=== PATIENT | male | born 1955 | race Caucasian/White ===

== ENCOUNTER 2017-06-29 07:34 | Observation (INO) | payer BC ==
[2017-06-29] VITALS (39 sets, daily range): BP systolic 142–221; BP diastolic 70–108; PULSE 58–79; RESP 10–20; Ht 167.6 cm; Wt 90.0 kg
[~2017-06-29] VITALS: Ht 167.6 cm; Wt 90.0 kg
[~2017-06-29 07:34] MED LIST: SOD CHLORIDE 0.9% 1,000 ML IV SCH
[2017-06-29] MEDS ORDERED: ATOR40TA68 PO (08:10)
[2017-06-29] MEDS ORDERED: METO-336 PO (08:10)
[2017-06-29] MEDS ORDERED: ALLO100T PO (08:10)
[2017-06-29] MEDS ORDERED: CLOP75TA27 PO (08:11)
[2017-06-29] MEDS ORDERED: RANO10002 PO (08:11)
[2017-06-29] MEDS ORDERED: ASPI-664 PO (08:11)
[2017-06-29] MEDS ORDERED: UBID100C24 PO (08:12)
[2017-06-29] MEDS ORDERED: NEPH PO (08:12)
[2017-06-29] MEDS ORDERED: LANT3I SC (08:18)
[2017-06-29] MEDS ORDERED: INSU200I SQ (08:19)
[2017-06-29 08:58] LABS: BASOPHIL # 0.1 10^3/ul (0.0-0.1); BASOPHILS % 0.7 % (0.0-2.0); EOSINOPHILS # 0.4 10^3/ul (0.0-0.5); EOSINOPHILS % 4.6 % (0.0-7.0); HEMATOCRIT 37.8 % (42.0-52.0); HEMOGLOBIN 12.7 g/dl (14.0-18.0); LYMPHOCYTES # 1.3 10^3/ul (0.8-2.9); LYMPHOCYTES % 16.3 % (15.0-51.0); MEAN CORPUSCULAR HEMOGLOBIN 29.2 pg (29.0-33.0); MEAN CORPUSCULAR HGB CONC 33.6 g/dl (32.0-37.0); MEAN CORPUSCULAR VOLUME 86.9 fl (82.0-101.0); MEAN PLATELET VOLUME 10.7 fl (7.4-10.4); MONOCYTE # 0.9 10^3/ul (0.3-0.9); MONOCYTES % 10.4 % (0.0-11.0); NEUTROPHIL # 5.6 10^3/ul (1.6-7.5); NEUTROPHILS % 67.6 % (39.0-77.0); PLATELET COUNT 139 10^3/UL (140-415); POSITIVE DIFF @See below; RED BLOOD COUNT 4.35 10^6/ul (4.70-6.10); RED CELL DISTRIBUTION WIDTH 13.9 % (11.5-14.5); WHITE BLOOD COUNT 8.2 10^3/ul (4.8-10.8)
[2017-06-29 09:03] LABS: ALBUMIN 3.5 g/dl (3.3-4.9); ALBUMIN/GLOBULIN RATIO 1.09; BILIRUBIN,INDIRECT 0.4 mg/dl (0-1.1); BILIRUBIN,TOTAL 0.4 mg/dl (0.2-1.3); TOTAL PROTEIN 6.7 g/dl (6.1-8.1)
[2017-06-29 09:07] LABS: INR 0.89; PARTIAL THROMBOPLASTIN TIME 27.9 Sec (25.0-35.0); PT RATIO 0.9
[2017-06-29 09:12] LABS: CREATININE 3.65 mg/dl (0.61-1.24); POTASSIUM 5.2 mmol/L (3.5-5.1)
[2017-06-29 09:14] LABS: TROPONIN-I 0.018 ng/ml (0.00-0.12)
[2017-06-29 09:17] LABS: CK-MB 10.6 ng/ml (0.0-2.4)
[2017-06-29 09:25] LABS: CHOL/HDL RATIO 1.8 RATIO
[2017-06-29] MEDS ORDERED: METOPROLOL 100 MG TAB PO ONE (09:30)
[2017-06-29] MEDS ORDERED: ACETYLCYSTEINE 600 MG CAP PO SCH (09:30)
[2017-06-29] MEDS ORDERED: LIDOCAINE 1% (MDV) 20 ML INJ ONE ×2 (14:01→16:08)
[2017-06-29] MEDS ORDERED: MIDAZOLAM 1 MG/ML 2 ML INJ ONE ×2 (14:06→16:08)
[2017-06-29] MEDS ORDERED: FENTAnyl 50 MCG/ML VIAL ONE ×2 (14:06→16:08)
[2017-06-29] MEDS ORDERED: VERAPAMIL 4 MG, NITROGLYCERIN 4 MG, HEPARIN (10000 UNITS/ML) 20,000 UNIT, LIDOCAINE 2% ... IV ONE ×5 (14:30)
[2017-06-29] MEDS ORDERED: HEPARIN 1000 UNITS/ML 10 ML INJ ONE (16:08)
[2017-06-29] MEDS ORDERED: IOHEXOL 350MG/ML 50 ML BTL ONE (16:08)
[2017-06-29] MEDS ORDERED: IODIXANOL LOCM 100 ML BTL ONE (16:08)
[2017-06-29] MEDS ORDERED: VERAPAMIL 5 MG INJ ONE (16:19)
[2017-06-29] MEDS ORDERED: NITROGLYCERIN (IC) 100 MCG/ML INJ ONE ×2 (16:24→17:02)
[2017-06-29] MEDS ORDERED: EPTIFIBATIDE 10 ML ONE (17:12)
[2017-06-29] MEDS ORDERED: CLOPIDOGREL 300 MG TAB ONE (17:46)
[2017-06-29] MEDS ORDERED: SOD CHLORIDE 0.9% 1,000 ML IV SCH (17:49)
[2017-06-29] MEDS ORDERED: morphine 2 MG INJ IV PRN (18:00)
--- NOTE | 2017-06-29 18:10 | OPR ---
Date/Time of Note Date/Time of Note DATE: 06/29/17 TIME: 17:58 Operative Report Procedure Date: Jun 29, 2017 Preoperative Diagnosis SEVERE angina and abnormal stress test Postoperative Diagnosis same Surgeon see signature line Tool Grinder Operator Surface n/a Anesthesia Type: moderate sedation Estimated Blood Loss: minimal Transfusion none Specimen none Grafts/Implants none Complications none Procedure Description Alcoholism Worker: Little Mena MD Indication: known severe CAD, severe angina class III-IV despite optimized medical therapy including toprol, Ranexa and markedly abnormal stress test/ pt also with CAD, CABG, CHF class II and CKD, PAD. Procure performed: #1 left heart catheterization and selective right coronary angiogram. 2. Selective graft angiography #2 Right femoral angiogram 3. complicated but Successful PTCA and stenting/ ROTO Blading of distal RCA using 1.25 BUR and 2.5x38 mm and 2.75x38 mm synergy NICOLA. 4. Moderate sedation for more than 120 minutes Findings: 1. Left main/ LAD/. LCX: was not shot b.c of concerns about renal failure and pt was previously known to have severely diseased LAD with patent RAO and 100% ostial LCX occlusion. 2. RCA: is dominant. it has 90 % stenosis proximally, 90% mid RCA and heavily calcified 95% stenosis distally which previously could not be opened by PTCA. 3. SVG ---> OM / or Diag: Multiple areas of 90-95% stenosis. Procedure in detail: Written informed consent with obtained after risks benefits and alternatives discussed with the patient in detail. risks including but not limited to risk of infection vascular complications, bleeding complications, [place] stroke arrhythmia renal failure at even were discussed with the patient in detail. Patient was brought into the cardiac labor relations teacher and placed in supine position. Right and left groin area was prepped and draped in regular sterile fashion and then he was in anesthetized using 1% lidocaine. Right femoral artery was cannulated and using modified seldinger technique a 5 Wolof sheath was placed in the right femoral artery. Right femoral angiogram was performed. and then it was changed to a long 6 F sheath. Pigtail was advanced to engage the left ventricle hemodynamics as recorded by pullback aortic pressure was measured. At this time we decided to perform PCI of the RCA. A AL 0.75 guiding head was advanced to engage the RCA. BMW wire was used and advanced across the lesion and placed distal to the argery. I used a 2.5 x 12 mm noncompliant balloon which was placed across the proximal and mid lesion and predilated the vessel ( so that roto can be advanced). Then I advanced a RotaWire across into the distal posterior descending artery. Roto rebekah was then tested outside of the body. Then it was advanced once the BMW wire was removed was able to place the proximal right coronary artery. He could not go further down. Had to bear this area to get the rotoblade down all the way to the distal. Distal right coronary artery multiple times was rotablated at 160. Initially was very difficult to cross it however was able to cross into the lesion. The Rotablator was removed. In between multiple rounds of nitroglycerin were rapid and IC was given. Then a BMW wire using advanced and crossed the lesion again. A 2.5 x 15 mm noncompliant balloon was passed across the lesion multiple times inflated. Then I used a 2.5 x 38 mm Synergy drug-eluting stent which was across the distal lesion. RotaWire was removed. The stent was deployed at 14 jeff. Then I used another 2.75 x 38 mm Synergy drug-eluting stent which were placed proximal to the previous stent and overlapping with it. This a stent was deployed at 16 jeff. It was advanced and the overlapping area was postdilated up to 14 jeff. Finally I used a 3 x 12 mm noncompliant balloon was used and postdilated the stent and up to 18 jeff. Final angiographic view was obtained which showed MARKEL-3 flow no evidence of dissection and no significant residual stenosis at the site of the stent. Wire was removed. Guide was advanced and placed into the saphenous finger and which was also suspicious for having significant stenosis. Angiographic view was obtained which confirmed significant central saphenous vein graft as well. It was decided to stage this procedure since the patient has severe chronic kidney disease and did not want to use any extra contrast. Patient tolerated the procedure well with no complication. Patient was transferred to ICU in stable condition. Please note that the procedure was very complex and difficult due to complex nature of the disease as well as the fact that the patient has severe chronic kidney disease and we had to use minimal amount of contrast. Conclusions: Successful PTCA stent/ rotoblading of the right coronary artery from up to 95% heavily calcified stenosis to no significant residual stenosis using a 2.5 x 38 mm Synergy and 2.75 x 38 mm Synergy drug-eluting stents. Recommendations: Aggressive medical therapy. aspirin indefinitely dual antiplatlet therapy with Plavix ICU care overnight. Stage PCI of the saphenous vein graft once renal function stabilizes LITTLE MENA MD [facility] LITTLE MENA MD Jun 29, 2017 18:10
[2017-06-29] MEDS ORDERED: DEXTROSE 50% 50 ML SYRINGE IV PRN ×2 (18:30)
[2017-06-29] MEDS ORDERED: GLUCOSE GEL 15 GRAM TUBE PO PRN ×2 (18:30)
[2017-06-29] MEDS ORDERED: GLUCAGON 1 MG INJ IM PRN (18:30)
[2017-06-29] MEDS ORDERED: GLUCOSE GEL 15 GRAM TUBE BUCCAL PRN (18:30)
[2017-06-29] MEDS: INSULIN ASPART [NOVOLOG] 3 ML PEN SC SCH (19:02)
[2017-06-29] MEDS: ACETYLCYSTEINE 600 MG CAP PO SCH (20:46)
[2017-06-29] MEDS: RANOLAZINE (SR) 500 MG TAB PO SCH (20:47)
[2017-06-29] MEDS ORDERED: ATORVASTATIN 40 MG TAB PO SCH (21:00)
[2017-06-29] MEDS ORDERED: METOPROLOL (XL) 50 MG TAB PO SCH (21:00)
[2017-06-29] MEDS ORDERED: ATROPINE 1 MG/10 ML SYRINGE ONE (21:04)
[2017-06-29] MEDS ORDERED: hydrALAzine 20 MG INJ ONE (21:23)
[2017-06-29] MEDS ORDERED: hydrALAzine 20 MG INJ IV PRN (21:30)
[2017-06-29] MEDS: ACETAMINOPHEN 325 MG TAB PO PRN (22:46)
[2017-06-30] VITALS (12 sets, daily range): BP systolic 128–168; BP diastolic 71–89; PULSE 64–80; RESP 10–21
[2017-06-30] MEDS: INSULIN ASPART [NOVOLOG] 3 ML PEN SC SCH ×3 (01:00→08:42)
--- NOTE | 2017-06-30 01:25 | HP ---
DATE OF ADMISSION: 06/29/2017 CHIEF COMPLAINT: Chest pain. HISTORY OF PRESENT ILLNESS: This is a 61-year-old male with a past medical history of chronic kidne y disease stage IV, with a baseline creatinine around 3 mg/dL, history of coronary artery disease st atus post CABG, history of hypertension, diabetes, dyspnea, heart block, status post pacemaker place ment, who presents to [facility] to undergo elective cardiac catheterization. The patient was noted to have severe angina despite being medically optimized. He was seen by his card iologist, was brought into [facility] where he underwent cardiac catheterization. The patient had successful stenting and rotablating of distal RCA. The patient, following the proc edure, was brought to recovery where he has been clinically stable without any acute complications. No hemoptysis, hematemesis or hematochezia. PAST MEDICAL HISTORY: As stated above, history of chronic kidney disease stage IV, history of coron dulce artery disease, history of hypertension, history of diabetes, history of arrhythmia. PAST SURGICAL HISTORY: Status post CABG, status post pacemaker placement. FAMILY HISTORY: Noncontributory. SOCIAL HISTORY: Does not drink, smoke or do drugs. MEDICATIONS: The patient's medications have been reviewed and reconciled. ALLERGIES: NO KNOWN DRUG ALLERGIES. REVIEW OF SYSTEMS: A 14-point review of systems was conducted. Pertinent positives stated in the H PI, otherwise negative. PHYSICAL EXAMINATION: VITAL SIGNS: Blood pressure is 172/83, pulse is 65. HEENT: Head is normocephalic. NECK: Supple. HEART: Regular rate. LUNGS: Show diminished breath sounds at base. ABDOMEN: Soft, nontender to palpation. No rebound or guarding. EXTREMITIES: Negative for clubbing, cyanosis. No edema. DERMATOLOGIC: No rashes. MUSCULOSKELETAL: No joint effusion. NEUROLOGIC: No focal deficits. LABORATORY DATA: Shows a white count 8.2, hemoglobin 10.7, hematocrit . Sodium 139, potassium 5.2, BUN 54, creatinine 0.65. ASSESSMENT AND PLAN: This is a 61-year-old male who presents with: 1. Coronary artery disease status post percutaneous coronary intervention with stent of the RCA. P archana is to continue current medical management, continue antiplatelet therapy, statin therapy. We wi ll follow with cardiology. 2. Chronic kidney disease stage IV with a previous baseline creatinine approximately 3 mg/dL. The patient's renal function appears to be at baseline. We will monitor closely for any signs of contra st-associated nephropathy. The patient only received approximately 40 mL of iodinated contrast. We will continue gentle IV hydration if blood pressure tolerates. Monitor closely. 3. Anemia. Monitor hemoglobin and hematocrit levels. 4. Mild hyperkalemia. The patient was placed on a renal diet. We will monitor potassium levels cl osely. 5. Mineral bone disorder. Monitor calcium and phosphorus levels. 6. Diabetes. Continue Accu-Cheks, insulin sliding scale. 7. Hypertension. Continue current blood pressure regimen. Would defer RENETAT inhibitor, ARB at this time. 8. Arrhythmia, status post pacemaker. Continue to monitor. 9. History of coronary artery disease, status post CABG. Continue medical management. 10. Gastrointestinal and DVT prophylaxis. Dictated By: SANDY MCLAIN DO NR/NTS Conf#: [id number] DID#: [id number] CC: LITTLE CORRAL MD;*End*
[2017-06-30] MEDS ORDERED: ACCU-CHEK XX SCH (02:00)
[2017-06-30 06:00] LABS: BASOPHILS % 0.5 % (0.0-2.0); EOSINOPHILS # 0.3 10^3/ul (0.0-0.5); EOSINOPHILS % 4.4 % (0.0-7.0); HEMATOCRIT 34.7 % (42.0-52.0); HEMOGLOBIN 11.7 g/dl (14.0-18.0); LYMPHOCYTES % 16.3 % (15.0-51.0); MEAN CORPUSCULAR HGB CONC 33.7 g/dl (32.0-37.0); MEAN PLATELET VOLUME 11.1 fl (7.4-10.4); MONOCYTE # 0.7 10^3/ul (0.3-0.9); MONOCYTES % 11.5 % (0.0-11.0); NEUTROPHIL # 4.2 10^3/ul (1.6-7.5); PLATELET COUNT 137 10^3/UL (140-415); WHITE BLOOD COUNT 6.3 10^3/ul (4.8-10.8)
[2017-06-30 06:38] LABS: ALBUMIN 2.7 g/dl (3.3-4.9); ALBUMIN/GLOBULIN RATIO 0.84; BILIRUBIN,INDIRECT 0.4 mg/dl (0-1.1); BILIRUBIN,TOTAL 0.4 mg/dl (0.2-1.3); CALCIUM 8.7 mg/dl (8.4-10.2); CHOL/HDL RATIO 2.1 RATIO; CREATININE 3.28 mg/dl (0.61-1.24); MAGNESIUM 1.7 mg/dl (1.7-2.5); POTASSIUM 4.9 mmol/L (3.5-5.1); TOTAL PROTEIN 5.9 g/dl (6.1-8.1)
--- NOTE | 2017-06-30 08:07 | CONS ---
Date/Time of Note Date/Time of Note DATE: 06/30/17 TIME: 08:04 Consult Date/Type/Reason Admit Date/Time Jun 29, 2017 at 18:34 Initial Consult Date Subjective CARD F/U NOTE S; mild groin pain no chest pain d/w staff no palpitations no PNDR ORTHOPNREA O: General: no acute distress HEENT: NC/AT. pupils are equal. round. NECK: NO JVD. no stridor. CV: RRR. systolic murmur; no gallop or rubs. PULM: no wheezing or rhonchi. GI: SOFT, NT, ND, no rebound or guarding Extremity: trace B/L LE edema. no clubbing. neuro: awake and alert, OX3. Psych: calm and pleasant rectal: deferred vascular: R fem no bleeding hematoma or bruit. Objective Vital Signs Date Time Temp Pulse Resp B/P Pulse Ox O2 Delivery O2 Flow Rate FiO2 06/30/17 07:00 66 14 145/78 96 Room Air 06/30/17 04:00 98.5 Intake and Output 06/29/17 06/29/17 06/30/17 14:59 22:59 06:59 Intake Total 100 ml 850 ml Output Total 450 ml Balance -350 ml 850 ml Results/Medications Result Diagram: 06/30/17 0534 06/30/17 0534 Results 24 hrs Laboratory Tests Test 06/29/17 08:32 06/29/17 08:41 06/29/17 18:36 06/30/17 01:00 White Blood Count 8.2 Red Blood Count 4.35 L Hemoglobin 12.7 L Hematocrit 37.8 L Mean Corpuscular Volume 86.9 Mean Corpuscular Hemoglobin 29.2 Mean Corpuscular Hemoglobin Concent 33.6 Red Cell Distribution Width 13.9 Platelet Count 139 L Mean Platelet Volume 10.7 H Neutrophils % 67.6 Lymphocytes % 16.3 Monocytes % 10.4 Eosinophils % 4.6 Basophils % 0.7 Nucleated Red Blood Cells % 0.0 Neutrophils # 5.6 Lymphocytes # 1.3 Monocytes # 0.9 Eosinophils # 0.4 Basophils # 0.1 Nucleated Red Blood Cells # 0.0 Prothrombin Time 12.0 L Prothrombin Time Ratio 0.9 INR International Normalized Ratio 0.89 Activated Partial Thromboplast Time 27.9 Sodium Level 139 Potassium Level 5.2 H Chloride Level 108 Carbon Dioxide Level 22 Anion Gap 14 Blood Urea Nitrogen 54 H Creatinine 3.65 H Glucose Level 143 Calcium Level 9.0 Total Bilirubin 0.4 Direct Bilirubin 0.00 Indirect Bilirubin 0.4 Aspartate Amino Transf (AST/SGOT) 32 Alanine Aminotransferase (ALT/SGPT) 42 Alkaline Phosphatase 87 Creatine Kinase 465 H Creatine Kinase Index 2.3 Creatinine Kinase MB (Mass) 10.60 H Troponin I 0.018 Total Protein 6.7 Albumin 3.5 Globulin 3.20 Albumin/Globulin Ratio 1.09 Triglycerides Level 132 Cholesterol Level 72 L LDL Cholesterol, Calculated 8 HDL Cholesterol 38 Cholesterol/HDL Ratio 1.8 Bedside Glucose 150 153 101 Test 06/30/17 05:07 06/30/17 05:34 Bedside Glucose 146 White Blood Count 6.3 # Red Blood Count 3.90 L Hemoglobin 11.7 L Hematocrit 34.7 L Mean Corpuscular Volume 89.0 Mean Corpuscular Hemoglobin 30.0 Mean Corpuscular Hemoglobin Concent 33.7 Red Cell Distribution Width 14.0 Platelet Count 137 L Mean Platelet Volume 11.1 H Neutrophils % 67.0 Lymphocytes % 16.3 Monocytes % 11.5 H Eosinophils % 4.4 Basophils % 0.5 Nucleated Red Blood Cells % 0.0 Neutrophils # 4.2 Lymphocytes # 1.0 Monocytes # 0.7 Eosinophils # 0.3 Basophils # 0.0 Nucleated Red Blood Cells # 0.0 Sodium Level 140 Potassium Level 4.9 Chloride Level 113 H Carbon Dioxide Level 20 L Anion Gap 12 Blood Urea Nitrogen 50 H Creatinine 3.28 H Glucose Level 140 Hemoglobin A1c 7.5 H Calcium Level 8.7 Magnesium Level 1.7 Total Bilirubin 0.4 Direct Bilirubin 0.00 Indirect Bilirubin 0.4 Aspartate Amino Transf (AST/SGOT) 26 Alanine Aminotransferase (ALT/SGPT) 43 Alkaline Phosphatase 71 Creatine Kinase 257 #H Total Protein 5.9 L Albumin 2.7 L Globulin 3.20 Albumin/Globulin Ratio 0.84 Triglycerides Level 203 H Cholesterol Level 61 L LDL Cholesterol, Calculated HDL Cholesterol 29 L Cholesterol/HDL Ratio 2.1 Medications Current Medications Allopurinol (Zyloprim) 100 mg DAILY PO ; Start 06/30/17 at 09:00 Aspirin (Halfprin) 81 mg DAILY PO ; Start 06/30/17 at 09:00 Atorvastatin Calcium (Lipitor) 40 mg QHS PO Last administered on 06/29/17t 20: 46; Admin Dose 40 MG; Start 06/29/17 at 21:00 Clopidogrel Bisulfate (plaVIX) 75 mg DAILY PO ; Start 06/30/17 at 09:00 Metoprolol Succinate (Toprol Xl) 100 mg DAILY PO Last administered on 20:48; Admin Dose 100 MG; Start 06/30/17 at 09:00 Multivit/Ca Carb/ B Cmplx/FA/Prenat (Melody-Charles) 1 tab DAILY PO ; Start at 09:00 Ranolazine (Ranexa) 1,000 mg Q12 PO Last administered on 06/29/17 20:47; Admin Dose 1,000 MG; Start 06/29/17 at 21:00 Metoprolol Succinate (Toprol Xl) 50 mg QHS PO ; Start 06/29/17 at 21:00 Clonidine (Catapres) 0.1 mg Q4H PRN PO SBP > 170; Start 06/29/17 at 18:00 Diagnostic Test (Pha) (Accu-Chek) 1 ea 02 XX ; Start 06/30/17 at 02:00 Insulin Aspart (Novolog Insulin Pen) NOVOLOG *MODERATE* ALGORI... Q4 SC Last administered on 06/30/17 05:08; Admin Dose 2 UNIT; Start 06/29/17 at 21:00 Acetylcysteine (Nac) 600 mg BID PO Last administered on 06/29/17 20:46; Admin Dose 600 MG; Start 06/29/17 at 21:00 Morphine Sulfate (morphine) 2 mg Q2H PRN IV SEVERE PAIN ; Start 06/29/17 at 18 :00 Acetaminophen (Tylenol Tab) 650 mg Q6H PRN PO PAIN AND OR ELEVATED TEMP Last administered on 06/29/17 22:46; Admin Dose 650 MG; Start 06/29/17 at 18:00 Miscellaneous Information 1 ea NOTE XX ; Start 06/29/17 at 18:30 Glucose (Glutose) 15 gm Q15M PRN PO DECREASED GLUCOSE; Start 06/29/17 at 18:30 Glucose (Glutose) 22.5 gm Q15M PRN PO DECREASED GLUCOSE; Start 06/29/17 at 18: 30 Dextrose (D50w Syringe) 25 ml Q15M PRN IV DECREASED GLUCOSE; Start 06/29/17 at 18:30 Dextrose (D50w Syringe) 50 ml Q15M PRN IV DECREASED GLUCOSE; Start 06/29/17 at 18:30 Glucagon (Glucagen) 1 mg Q15M PRN IM DECREASED GLUCOSE; Start 06/29/17 at 18: 30 Glucose (Glutose) 15 gm Q15M PRN BUCCAL DECREASED GLUCOSE; Start 06/29/17 at 18:30 Hydralazine HCl (Apresoline) 10 mg Q4H PRN IV ELEVATED SYSTOLIC BP Last administered on 06/29/17t 21:35; Admin Dose 10 MG; Start 06/29/17 at 21:30 Assessment/Plan Chief Complaint/Hosp Course 1. unstable angina, abnormal stress test and severe CAD 2. S/P PCI / ROTO RCA 3. CKD 4. HTN 5. DM 6. Dyslipidemia 7. CHF: stable 7./ sss/ heart block s/ p PPM inc toprol xl 100 bid cont other meds dc home. repeat labs in one week and if stable renal fx will proceed with PCI SVG in 2 weeks. LITTLE CORRAL MD [facility] Problems: LITTLE CORRAL MD Jun 30, 2017 08:07
[2017-06-30] MEDS: ACETYLCYSTEINE 600 MG CAP PO SCH (08:38)
[2017-06-30] MEDS: RANOLAZINE (SR) 500 MG TAB PO SCH (08:39)
--- NOTE | 2017-06-30 08:45 | PN ---
DATE: 06/30/2017 SUBJECTIVE: The patient is stable. Overnight, no acute events noted. No hemoptysis, hematemesis, hematochezia. PHYSICAL EXAMINATION: VITAL SIGNS: Blood pressure is 145/78, respirations 14, pulse 66, temperature 98.5. HEENT: Normocephalic. NECK: Supple. HEART: Regular rate. LUNGS: Show diminished breath sounds at the base. ABDOMEN: Soft, nontender to palpation. No rebound or guarding. EXTREMITIES: Negative for clubbing, cyanosis, no edema. DERMATOLOGIC: No rashes. MUSCULOSKELETAL: No joint effusion. NEUROLOGICAL: No focal deficits. LABORATORY DATA: Sodium 140, potassium 4.9, chloride 113, BUN 50, creatinine 3.28. White count 6.3 , hemoglobin 9.7, hematocrit 34.7, platelet count 137. ASSESSMENT AND PLAN: 1. Coronary artery disease status post percutaneous coronary intervention dRCA. The patient is cur rently stable. Continue current medical management. Followup with cardiology. 2. Chronic kidney disease stage IV with a baseline creatinine around 3 mg/dL. The patient's renal function is currently at baseline. Renal function and creatinine improved in the last 24 hours. Th e patient had very minimal contrast exposure. There is no evidence of contrast-associated nephropat hy. Will continue to monitor. The patient is to followup with his outpatient automotive leasing sales representative in outpa tient setting. 3. Anemia, monitor hemoglobin and hematocrit levels. 4. Mild hyperkalemia, resolved. 5. Mineral bone disorder. Continue to monitor calcium and phosphorus levels. 6. Diabetes. Continue Accu-Cheks and insulin sliding scale. 7. Hypertension. Continue current blood pressure regimen. 8. Arrhythmia. Status post pacemaker. Continue to monitor. 9. History of coronary artery disease. Status post coronary artery bypass graft 10. Gastrointestinal and deep venous thrombosis prophylaxis. Dictated By: SANDY ALVARENGA/JHON Conf#: [id number] DID#: [id number]
[2017-06-30] MEDS ORDERED: ALLOPURINOL 100 MG TAB PO SCH (09:00)
[2017-06-30] MEDS ORDERED: MULTIVIT/CA CARB/B CMPLX/FA TAB PO SCH (09:00)
[2017-06-30] MEDS ORDERED: METOPROLOL (XL) 100 MG TAB PO SCH ×2 (09:00→09:30)
[2017-06-30] MEDS ORDERED: ASPIRIN (EC) 81 MG TAB PO SCH (09:00)
[2017-06-30] MEDS ORDERED: CLOPIDOGREL 75 MG TAB PO SCH (09:00)
[2017-06-30] MEDS: ACETAMINOPHEN 325 MG TAB PO PRN (10:02)
--- NOTE | 2017-07-01 09:36 | DS ---
DATE OF ADMISSION: 06/29/2017 DATE OF DISCHARGE: 06/30/2017 HOSPITAL COURSE: This is a 61-year-old male with a past medical history of chronic kidney disease s tage IV with a baseline creatinine around 3 mg/dL, history of CABG, hypertension, diabetes, dyslipid emia, heart block who presented to [facility] to undergo elective cardiac catheter ization. The patient had a cardiac catheterization performed by Dr. Mena in which a stent and PCI to RCA was performed. The patient had minimal contrast exposure. Following the procedure, the pat ient was clinically stable. There was no evidence or signs of contrast-associated nephropathy. The patient's renal function actually improved after receiving IV hydration. Currently at this time, t he patient is stable, in no acute distress. He will be discharged home with followup with his prima care physician and application integration engineer in 2 to 3 days' time. FINAL DIAGNOSES: 1. Coronary artery disease, status post percutaneous coronary intervention and stenting of the [facility] t coronary artery. Continue current medical management with antiplatelet therapy. 2. Chronic kidney disease stage IV, renal function is currently stable. Continue to monitor. 3. Anemia 4. Mild hyperkalemia, resolved. 5. Mineral bone disorder. 6. Diabetes. 7. Hypertension. 8. Arrhythmia. 9. Coronary artery disease status post coronary artery bypass graft. Please note at time of discharge, the patient is stable, in no acute distress. Please note I spent over 30 minutes of time discharging patient. FINAL MEDICATIONS: See reconciliation list. Dictated By: SANDY ALVARENGA/JHON Conf#: [id number] DID#: [id number]
--- NOTE | 2017-07-01 13:31 | RADRPT ---
Vent Rate: 65 bpm RR Interval: 0 msec ID Interval: 168 msec QRS Duration: 148 msec QT Interval: 454 msec QTC Interval: 472 msec P-R-T [place]: 71 - 98 - 0 degrees Normal sinus rhythm Rightward axis Left bundle branch block Abnormal ECG Electronically Signed By: Benigno Cast [id number]
== END 2017-06-30 11:00 | disposition home or self-care (01) ==
LOC: SDS 07:34 → REC 18:34 → SDS 18:34 → UNDOADMOB 20:02 → REC 20:02 → ICU 23:30
PROVIDERS: ADMIT Internal Medicine Interventional Cardiology; ATTEND Internal Medicine Interventional Cardiology
DX: I25.110 Atherosclerotic heart disease of native coronary artery with unstable angina pectoris (principal); Z95.1 Presence of aortocoronary bypass graft; I13.0 Hypertensive heart and chronic kidney disease with heart failure and stage 1 through stage 4 chronic kidney disease, or unspecified chronic kidney disease; N18.4 Chronic kidney disease, stage 4 (severe); I50.9 Heart failure, unspecified; D64.9 Anemia, unspecified; E87.5 Hyperkalemia; M89.9 Disorder of bone, unspecified; E11.9 Type 2 diabetes mellitus without complications; I10 Essential (primary) hypertension; E78.5 Hyperlipidemia, unspecified; Z95.0 Presence of cardiac pacemaker
CPT/HCPCS: 80053; 80061; 82550; 82553; 82962; 83036; 83735; 84484; 85025; 85610; 85730; 87081; 93005; 93459; C1724; C1725; C1769; C1874; C1887; C1894; G0378; J0360; J0461; J1327; J1644; J1815; J2250; J3010; J7030; Q9967

== ENCOUNTER 2017-07-20 08:30 | Observation (INO) | payer BC ==
[2017-07-20] VITALS (22 sets, daily range): BP systolic 140–189; BP diastolic 68–93; PULSE 60–74; RESP 10–23; Ht 170.2 cm; Wt 86.3 kg
[~2017-07-20] VITALS: Ht 170.2 cm; Wt 86.3 kg
[~2017-07-20 08:30] MED LIST changes: +ACETYLCYSTEINE INJ 1,200 MG in SOD CHLORIDE 0.9% 100 ML IV SCH; +ALLO100T PO; +ASPI-664 PO; +ATOR40TA68 PO; +CLOP75TA27 PO; +INSU200I SQ; +LANT3I SC; +METO-336 PO; +NEPH PO; +RANO10002 PO; +UBID100C24 PO
[2017-07-20] MEDS ORDERED: METOPROLOL (XL) 100 MG TAB PO ONE (09:30)
[2017-07-20 09:35] LABS: BASOPHILS % 0.6 % (0.0-2.0); EOSINOPHILS # 0.4 10^3/ul (0.0-0.5); HEMATOCRIT 33.4 % (42.0-52.0); HEMOGLOBIN 11.4 g/dl (14.0-18.0); LYMPHOCYTES % 14.9 % (15.0-51.0); MEAN CORPUSCULAR HEMOGLOBIN 30.4 pg (29.0-33.0); MEAN CORPUSCULAR HGB CONC 34.1 g/dl (32.0-37.0); MEAN CORPUSCULAR VOLUME 89.1 fl (82.0-101.0); MONOCYTE # 0.7 10^3/ul (0.3-0.9); MONOCYTES % 9.7 % (0.0-11.0); NEUTROPHIL # 4.9 10^3/ul (1.6-7.5); NEUTROPHILS % 69.5 % (39.0-77.0); PLATELET COUNT 144 10^3/UL (140-415); RED BLOOD COUNT 3.75 10^6/ul (4.70-6.10); RED CELL DISTRIBUTION WIDTH 14.2 % (11.5-14.5)
[2017-07-20 09:54] LABS: INR 0.94; PROTIME 12.6 Sec (12.2-14.2)
[2017-07-20 09:55] LABS: ALBUMIN 3.2 g/dl (3.3-4.9); ALBUMIN/GLOBULIN RATIO 0.96; BILIRUBIN,INDIRECT 0.3 mg/dl (0-1.1); BILIRUBIN,TOTAL 0.3 mg/dl (0.2-1.3); PARTIAL THROMBOPLASTIN TIME 27.4 Sec (25.0-35.0); TOTAL PROTEIN 6.5 g/dl (6.1-8.1)
[2017-07-20 09:56] LABS: CALCIUM 8.9 mg/dl (8.4-10.2); CREATININE 3.55 mg/dl (0.61-1.24); POTASSIUM 4.8 mmol/L (3.5-5.1)
[2017-07-20 10:08] LABS: CK-MB 10.2 ng/ml (0.0-2.4)
[2017-07-20 10:42] LABS: TROPONIN-I 0.033 ng/ml (0.00-0.12)
--- NOTE | 2017-07-20 13:54 | RADRPT ---
PROCEDURE: XR Chest. CLINICAL INDICATION: CHF. TECHNIQUE: Single portable view of the chest was obtained. COMPARISON: None . FINDINGS: Low lung volumes. The heart is enlarged. There are median sternotomy and post CABG changes. A left-s ided dual chambered AICD is present with leads overlying the right atrium and right ventricle. Left upper lobe, perihilar and lower lobe fibrosis or discoid atelectasis is present. No evidence of congestive heart failure, consolidation or pleural effusion. IMPRESSION: 1. No acute pulmonary disease. 2. Left upper lobe, hilar and lower lobe scar or discoid atelectasis. 3. Cardiomegaly with post CABG changes. 4. Cardiac pacemaker. RPTAT: HRSR Physician Chivo Date Time Electronically viewed and signed by Physician Chivo on 07/20/2017 13:54 RR/
[2017-07-20] MEDS ORDERED: BIVALIRUDIN 250MG /NS 50 ML 50 ML IVPB ONE (17:37)
[2017-07-20] MEDS ORDERED: IODIXANOL LOCM 100 ML BTL ONE (17:37)
[2017-07-20] MEDS ORDERED: FENTAnyl 50 MCG/ML VIAL ONE (17:38)
[2017-07-20] MEDS ORDERED: VERAPAMIL 5 MG INJ ONE (17:38)
[2017-07-20] MEDS ORDERED: MIDAZOLAM 1 MG/ML 2 ML INJ ONE (17:38)
[2017-07-20] MEDS ORDERED: NITROGLYCERIN (IC) 100 MCG/ML INJ ONE (17:38)
[2017-07-20] MEDS ORDERED: HYPOGLYCEMIA PROTOCOL when Glucose is <70 mg/dL or symptomatic <90 mg/dL. XX ONE ×2 (18:30→19:00)
[2017-07-20] MEDS ORDERED: Discontinue current oral sulfonylureas (glyburide, glipizide, and/or glimepiride) prior to XX ONE ×2 (18:30→19:00)
[2017-07-20] MEDS ORDERED: CLOPIDOGREL 300 MG TAB ONE (18:39)
[2017-07-20] MEDS ORDERED: SOD CHLORIDE 0.9% 1,000 ML IV SCH (18:41)
--- NOTE | 2017-07-20 18:41 | HP ---
DATE OF ADMISSION: 07/20/2017 CHIEF COMPLAINT: Coronary artery disease. HISTORY OF PRESENT ILLNESS: This is a 61-year-old male with a past medical history of chronic kidne y disease stage IV with a baseline creatinine around 3.5 mg/dL, history of coronary artery disease, status post CABG, history of hypertension, diabetes, dyspnea, heart block, status post pacemaker obinna cement, who presents to [facility] to undergo elective cardiac catheterization. T he patient was previously admitted to [facility] approximately 2 weeks ago, where he underwent cardiac catheterization with PCI to right coronary artery. The patient is now back for further revascularization of his coronary arteries. The patient states that his renal function has been at baseline. Additionally, the patient denies any uremic symptoms. No nausea, vomiting, no s hortness of breath. PAST MEDICAL HISTORY: As stated above, history of CKD stage IV, history of coronary artery disease, hypertension, diabetes, arrhythmia. PAST SURGICAL HISTORY: Status post CABG, status post pacemaker placement. FAMILY HISTORY: Noncontributory. SOCIAL HISTORY: Does not drink, smoke or do drugs. MEDICATIONS: Reviewed and reconciled. ALLERGIES: NO KNOWN DRUG ALLERGIES. REVIEW OF SYSTEMS: A 14-point review of systems was conducted. Pertinent positives in HPI, otherwi se negative. PHYSICAL EXAMINATION: VITAL SIGNS: Blood pressure is 150/82, pulse 62. HEENT: Head is normocephalic. NECK: Supple. HEART: Regular rate. LUNGS: Show diminished breath sounds at the base. ABDOMEN: Soft, nontender to palpation. No rebound or guarding. EXTREMITIES: Negative for clubbing, cyanosis. Trace edema. DERMATOLOGIC: No rashes. MUSCULOSKELETAL: No joint effusions. NEUROLOGIC: No change in exam. No focal deficit. LABORATORY DATA: Shows white count 7.0, hemoglobin ____.4, platelet count is 144. Sodium 142, pota ssium 4.8, BUN 12, creatinine 3.55. ASSESSMENT AND PLAN: This is a 61-year-old male who presents with: 1. Coronary artery disease. The patient is pending cardiac catheterization. Will plan to continue current medical management. Continue antiplatelet therapy, statin therapy. Follow up with cardiolo gy. 2. Chronic kidney disease stage IV with a baseline creatinine 3.5 mg/dL. Renal function appears to be at baseline. Will monitor very closely for any signs of contrast-induced nephropathy. Would oth erwise continue gentle IV hydration. Continue current treatment plan. 3. Anemia. Monitor hemoglobin and hematocrit levels. 4. Mineral bone disease. Monitor calcium and phosphorus levels. 5. Diabetes. Continue current insulin regimen. 6. Hypertension. Continue current blood pressure regimen. Withhold angiotensin-converting enzyme i nhibitor/angiotensin receptor leta at this time in the setting of contrast exposure. 7. Arrhythmia, status post pacemaker. Continue medical management. 8. History of coronary artery disease, status post coronary artery bypass graft. 9. Gastrointestinal and deep venous thrombosis prophylaxis. Dictated By: SANDY ALVARENGA/NTS Conf#: [id number] DID#: [id number]
--- NOTE | 2017-07-20 18:57 | OPR ---
Date/Time of Note Date/Time of Note DATE: 07/20/17 TIME: 18:49 Operative Report Procedure Date: Jul 20, 2017 Preoperative Diagnosis class IV angina. abnormal stress test despite optimized medical therapy. severe CAD Postoperative Diagnosis SAME Surgeon see signature line Machine Pie Maker N/A Anesthesia Type: moderate sedation Estimated Blood Loss: minimal Transfusion none Specimen NONE Grafts/Implants none Complications none Pt Condition Post Procedure: stable Procedure Description Professional Caster: Little Mena MD Indication: recurrent angina. abnormal stress test. CAD. Procure performed: #1 selective sherrie angiogram. #2 Right femoral angiogram 3. Successful PTCA and stenting of SVG to diag/ RI using a 3.5X38 mm synergy and 4x20 synergy NICOLA 4. Moderate sedation for more than 60 minutes Findings: 1. SVG ---> RI ( or diagonal) multiple area of up to 95% to 0% post PCI Procedure in detail: Written informed consent with obtained after risks benefits and alternatives discussed with the patient in detail. risks including but not limited to risk of infection vascular complications, bleeding complications, NV stroke arrhythmia renal failure at even were discussed with the patient in detail. Patient was brought into the cardiac chemical laboratory scientist and placed in supine position. Right and left groin area was prepped and draped in regular sterile fashion and then he was in anesthetized using 1% lidocaine. Right femoral artery was cannulated and using modified seldinger technique a 4 Swazi sheath was placed in the right femoral artery. Right femoral angiogram was performed. preclose was placed and changed to a long 6 F sheath. At this time we decided to perform PCI of the SVG based on the study done previously. A AL 0.75 guiding head was advanced to engage the SVG artery. runthroug wire was used and advanced across the lesion and placed distal to the argery. I used a 2.5x20 mm balloon which was placed across the lesion and predilated the vessel. Then I used a 3.5x38 mm synergy stent which was placed across the lesion and deployed at 16 jeff. Then I used the 4.0 x 20 mm Synergy drug-eluting stent which was placed proximal to the previous stent overlapping with it and deployed it at 16 jeff. The stent balloon was advanced and overlapping area was postdilated at 14 jeff. Of note multiple rounds of nitroglycerin and verapamil intracoronary was given. Final angiographic view was obtained which showed MARKEL-3 flow no evidence of dissection and no significant residual stenosis at the site of the stent. perclose could not be successfully be deployed and a 6 F sheath was placed in. Patient tolerated the procedure well with no complication. Patient was transferred to ICU in stable condition. Conclusions: Successful PTCA stenting of the saphenous vein graft artery from 95 % stenosis to no significant residual stenosis using a 3.5 x 38 and a 4.0 x 20 mm Synergy drug-eluting stents. Recommendations: Aggressive medical therapy. aspirin indefinitely dual antiplatlet therapy with aspirin and Plavix ICU care overnight. LITTLE MENA MD [facility] LITTLE MENA MD Jul 20, 2017 18:57
[2017-07-20] MEDS ORDERED: OXYCODONE/ACETAMINOPHEN (5/325) TAB PO PRN ×2 (19:00)
[2017-07-20] MEDS ORDERED: ACETAMINOPHEN 325 MG TAB PO PRN (19:00)
[2017-07-20] MEDS ORDERED: morphine 2 MG INJ IV PRN (19:00)
[2017-07-20] MEDS ORDERED: ONDANSETRON 4 MG INJ IV PRN (19:00)
[2017-07-20] MEDS ORDERED: GLUCOSE GEL 15 GRAM TUBE PO PRN ×2 (19:30)
[2017-07-20] MEDS ORDERED: GLUCOSE GEL 15 GRAM TUBE BUCCAL PRN (19:30)
[2017-07-20] MEDS ORDERED: GLUCAGON 1 MG INJ IM PRN (19:30)
[2017-07-20] MEDS ORDERED: DEXTROSE 50% 50 ML SYRINGE IV PRN ×2 (19:30)
[2017-07-20] MEDS ORDERED: INSULIN ASPART [NOVOLOG] 3 ML PEN SC SCH (21:00)
[2017-07-20] MEDS ORDERED: FAMOTIDINE 20 MG TAB PO SCH (21:00)
[2017-07-20] MEDS ORDERED: RANOLAZINE (SR) 500 MG TAB PO SCH (21:00)
[2017-07-20] MEDS ORDERED: ATORVASTATIN 40 MG TAB PO SCH ×2 (21:00)
[2017-07-20] MEDS: ACETYLCYSTEINE 600 MG CAP PO SCH (22:27)
[2017-07-20] MEDS: DOCUSATE SODIUM 100 MG CAP PO SCH (22:27)
[2017-07-20] MEDS: METOPROLOL (XL) 100 MG TAB PO SCH (23:18)
[2017-07-20] MEDS: RANOLAZINE (SR) 500 MG TAB PO SCH (23:18)
[2017-07-20] MEDS: INSULIN ASPART [NOVOLOG] 3 ML PEN SC SCH (23:23)
[2017-07-21] VITALS (14 sets, daily range): BP systolic 138–174; BP diastolic 65–91; PULSE 60–69; RESP 12–17
[2017-07-21] MEDS ORDERED: ACCU-CHEK XX SCH ×2 (02:00)
[2017-07-21 05:52] LABS: BASOPHIL # 0.1 10^3/ul (0.0-0.1); BASOPHILS % 0.8 % (0.0-2.0); EOSINOPHILS # 0.3 10^3/ul (0.0-0.5); EOSINOPHILS % 5.1 % (0.0-7.0); HEMATOCRIT 32.2 % (42.0-52.0); HEMOGLOBIN 10.5 g/dl (14.0-18.0); LYMPHOCYTES # 1.1 10^3/ul (0.8-2.9); LYMPHOCYTES % 16.4 % (15.0-51.0); MEAN CORPUSCULAR HGB CONC 32.6 g/dl (32.0-37.0); MEAN PLATELET VOLUME 11.6 fl (7.4-10.4); MONOCYTE # 0.8 10^3/ul (0.3-0.9); MONOCYTES % 11.6 % (0.0-11.0); NEUTROPHIL # 4.4 10^3/ul (1.6-7.5); NEUTROPHILS % 65.6 % (39.0-77.0); PLATELET COUNT 116 10^3/UL (140-415); RED CELL DISTRIBUTION WIDTH 14.6 % (11.5-14.5); WHITE BLOOD COUNT 6.6 10^3/ul (4.8-10.8)
[2017-07-21 06:15] LABS: MAGNESIUM 1.8 mg/dl (1.7-2.5); PHOSPHORUS 4.8 mg/dl (2.5-4.9)
[2017-07-21 06:37] LABS: ALBUMIN 2.8 g/dl (3.3-4.9); ALBUMIN/GLOBULIN RATIO 1.03; BILIRUBIN,INDIRECT 0.2 mg/dl (0-1.1); BILIRUBIN,TOTAL 0.2 mg/dl (0.2-1.3); CALCIUM 8.4 mg/dl (8.4-10.2); CREATININE 3.32 mg/dl (0.61-1.24); TOTAL PROTEIN 5.5 g/dl (6.1-8.1)
[2017-07-21 06:46] LABS: POTASSIUM 6.1 mmol/L (3.5-5.1)
--- NOTE | 2017-07-21 07:14 | CONS ---
Date/Time of Note Date/Time of Note DATE: 07/21/17 TIME: 07:11 Consult Date/Type/Reason Admit Date/Time Jul 20, 2017 at 18:45 Initial Consult Date Type of Consultation: card Subjective card f/u note S: NO CP OR PRESSURE No palpitations no PND orthopnea no groin pain but he has not walked yet O: General: no acute distress HEENT: NC/AT. pupils are equal. round. NECK: NO JVD. no stridor. CV: RRR. systolic murmur; no gallop or rubs. PULM: no wheezing or rhonchi. GI: OBESE. SOFT, NT, ND, no rebound or guarding Extremity: trace B/L LE edema. no clubbing. neuro: awake and alert, OX3. Psych: calm and pleasant Vascular: R fem no bleeding or hematoma Objective Vital Signs Date Time Temp Pulse Resp B/P Pulse Ox O2 Delivery O2 Flow Rate FiO2 07/21/17 06:00 62 13 144/65 97 Room Air 07/21/17 04:00 98.1 Intake and Output 07/20/17 07/20/17 07/21/17 14:59 22:59 06:59 Intake Total 345 ml 820 ml Output Total 250 ml Balance 345 ml 570 ml Results/Medications Result Diagram: 07/21/17 0456 07/21/17 0456 Results 24 hrs Laboratory Tests Test 07/20/17 09:26 07/20/17 09:48 07/20/17 17:12 07/20/17 19:19 White Blood Count 7.0 Red Blood Count 3.75 L Hemoglobin 11.4 L Hematocrit 33.4 L Mean Corpuscular Volume 89.1 Mean Corpuscular Hemoglobin 30.4 Mean Corpuscular Hemoglobin Concent 34.1 Red Cell Distribution Width 14.2 Platelet Count 144 Mean Platelet Volume 11.0 H Neutrophils % 69.5 Lymphocytes % 14.9 L Monocytes % 9.7 Eosinophils % 5.0 Basophils % 0.6 Nucleated Red Blood Cells % 0.0 Neutrophils # 4.9 Lymphocytes # 1.0 Monocytes # 0.7 Eosinophils # 0.4 Basophils # 0.0 Nucleated Red Blood Cells # 0.0 Prothrombin Time 12.6 Prothrombin Time Ratio 1.0 INR International Normalized Ratio 0.94 Activated Partial Thromboplast Time 27.4 Sodium Level 142 Potassium Level 4.8 Chloride Level 110 Carbon Dioxide Level 21 Anion Gap 16 Blood Urea Nitrogen 51 H Creatinine 3.55 H Glucose Level 175 Calcium Level 8.9 Total Bilirubin 0.3 Direct Bilirubin 0.00 Indirect Bilirubin 0.3 Aspartate Amino Transf (AST/SGOT) 24 Alanine Aminotransferase (ALT/SGPT) 37 Alkaline Phosphatase 85 Creatine Kinase 278 H Creatine Kinase Index 3.7 Creatinine Kinase MB (Mass) 10.20 H Troponin I 0.033 B-Type Natriuretic Peptide 1230 H Total Protein 6.5 Albumin 3.2 L Globulin 3.30 H Albumin/Globulin Ratio 0.96 Bedside Glucose 180 135 141 Test 07/20/17 22:22 07/21/17 04:56 Bedside Glucose 191 White Blood Count 6.6 Red Blood Count 3.50 L Hemoglobin 10.5 L Hematocrit 32.2 L Mean Corpuscular Volume 92.0 Mean Corpuscular Hemoglobin 30.0 Mean Corpuscular Hemoglobin Concent 32.6 Red Cell Distribution Width 14.6 H Platelet Count 116 L Mean Platelet Volume 11.6 H Neutrophils % 65.6 Lymphocytes % 16.4 Monocytes % 11.6 H Eosinophils % 5.1 Basophils % 0.8 Nucleated Red Blood Cells % 0.0 Neutrophils # 4.4 Lymphocytes # 1.1 Monocytes # 0.8 Eosinophils # 0.3 Basophils # 0.1 Nucleated Red Blood Cells # 0.0 Sodium Level 141 Potassium Level 6.1 *H Chloride Level 112 H Carbon Dioxide Level 20 L Anion Gap 15 Blood Urea Nitrogen 46 H Creatinine 3.32 H Glucose Level 219 Calcium Level 8.4 Phosphorus Level 4.8 Magnesium Level 1.8 Total Bilirubin 0.2 Direct Bilirubin 0.00 Indirect Bilirubin 0.2 Aspartate Amino Transf (AST/SGOT) 23 Alanine Aminotransferase (ALT/SGPT) 35 Alkaline Phosphatase 71 Creatine Kinase 200 B-Type Natriuretic Peptide 1480 H Total Protein 5.5 #L Albumin 2.8 L Globulin 2.70 Albumin/Globulin Ratio 1.03 Medications Current Medications Allopurinol (Zyloprim) 100 mg DAILY PO ; Start 07/21/17 at 09:00 Multivit/Ca Carb/ B Cmplx/FA/Prenat (Melody-Charles) 1 tab DAILY PO ; Start at 09:00 Diagnostic Test (Pha) (Accu-Chek) 1 ea 02 XX Last administered on 07/21/17t 02 :06; Admin Dose 1 EA; Start 07/21/17 at 02:00 Acetaminophen (Tylenol Tab) 650 mg Q4H PRN PO NON-CARDIAC PAIN LEVEL 1-3; Start 07/20/17 at 19:00 Oxycodone/ Acetaminophen (Percocet (5/ 325)) 1 tab Q4H PRN PO REPORTED NON- CARDIAC PAIN 4-7; Start 07/20/17 at 19:00 Oxycodone/ Acetaminophen (Percocet (5/ 325)) 2 tab Q4H PRN PO REPORTED NON- CARDIAC PAIN 4-7; Start 07/20/17 at 19:00 Morphine Sulfate (morphine) 1 mg Q1H PRN IV PAIN NOT RELIEVED BY OTHERS; Start 07/20/17 at 19:00 Ondansetron HCl (Zofran Inj) 4 mg Q4H PRN IV NAUSEA AND/OR VOMITING; Start at 19:00 Docusate Sodium (Colace) 100 mg BID PO Last administered on 07/20/17 22:27; Admin Dose 100 MG; Start 07/20/17 at 21:00 Famotidine 10 mg 10 mg Q24H PO Last administered on 07/20/17 22:28; Admin Dose 10 MG; Start 07/20/17 at 21:00 Sodium Chloride (NS) 1,000 ml @ 75 mls/hr [id number] IV Last administered on 19:30; Admin Dose 75 MLS/HR; Start 07/20/17 at 18:41; Stop 07/21/17 at 08:00 Metoprolol Succinate (Toprol Xl) 100 mg BID PO Last administered on 07/20/17 23:18; Admin Dose 100 MG; Start 07/20/17 at 21:00 Atorvastatin Calcium (Lipitor) 40 mg HS PO Last administered on 07/20/17 22: 28; Admin Dose 40 MG; Start 07/20/17 at 21:00 Aspirin (Halfprin) 81 mg DAILY PO ; Start 07/21/17 at 09:00 Clopidogrel Bisulfate (plaVIX) 75 mg DAILY PO ; Start 07/21/17 at 09:00 Ranolazine (Ranexa) 500 mg Q12 PO Last administered on 07/20/17 23:18; Admin Dose 500 MG; Start 07/20/17 at 21:00 Acetylcysteine (Nac) 600 mg BID PO Last administered on 07/20/17 22:27; Admin Dose 600 MG; Start 07/20/17 at 21:00 Diagnostic Test (Pha) (Accu-Chek) 1 ea 02 XX Last administered on 07/21/17 02 :05; Admin Dose 1 EA; Start 07/21/17 at 02:00 Clonidine (Catapres) 0.1 mg Q4H PRN PO sbp > 170 Last administered on 00:09; Admin Dose 0.1 MG; Start 07/20/17 at 19:00 Miscellaneous Information 1 ea NOTE XX ; Start 07/20/17 at 19:30 Glucose (Glutose) 15 gm Q15M PRN PO DECREASED GLUCOSE; Start 07/20/17 at 19:30 Glucose (Glutose) 22.5 gm Q15M PRN PO DECREASED GLUCOSE; Start 07/20/17 at 19: 30 Dextrose (D50w Syringe) 25 ml Q15M PRN IV DECREASED GLUCOSE; Start 07/20/17 at 19:30 Dextrose (D50w Syringe) 50 ml Q15M PRN IV DECREASED GLUCOSE; Start 07/20/17 at 19:30 Glucagon (Glucagen) 1 mg Q15M PRN IM DECREASED GLUCOSE; Start 07/20/17 at 19: 30 Glucose (Glutose) 15 gm Q15M PRN BUCCAL DECREASED GLUCOSE; Start 07/20/17 at 19:30 Sodium Polystyrene Sulfonate (Kayexalate) 30 gm ONCE ONCE PO ; Start 07/21/17 at 07:30; Stop 07/21/17 at 07:31 Assessment/Plan Chief Complaint/Hosp Course 1. unstable angina: s/p PCI SVG 2. CKD: stable 3. hyper K 4. htn 5/ Heart block s/ PPM 6/ Anemia 7./ DM Kayalate today cont rest of his meds dc planing when ok with renal LITTLE CORRAL MD [facility] Problems: LITTLE CORRAL MD Jul 21, 2017 07:14
[2017-07-21] MEDS ORDERED: NA POLYST SULFON 15 GM/60 ML BTL PO ONE (07:30)
[2017-07-21] MEDS: RANOLAZINE (SR) 500 MG TAB PO SCH (08:29)
[2017-07-21] MEDS: ACETYLCYSTEINE 600 MG CAP PO SCH (08:29)
[2017-07-21] MEDS: DOCUSATE SODIUM 100 MG CAP PO SCH (08:30)
[2017-07-21] MEDS: METOPROLOL (XL) 100 MG TAB PO SCH (08:34)
[2017-07-21] MEDS: INSULIN ASPART [NOVOLOG] 3 ML PEN SC SCH ×2 (08:38→11:27)
[2017-07-21] MEDS ORDERED: METOPROLOL (XL) 100 MG TAB PO SCH (09:00)
[2017-07-21] MEDS ORDERED: MULTIVIT/CA CARB/B CMPLX/FA TAB PO SCH (09:00)
[2017-07-21] MEDS ORDERED: ASPIRIN (EC) 81 MG TAB PO SCH ×2 (09:00)
[2017-07-21] MEDS ORDERED: ALLOPURINOL 100 MG TAB PO SCH (09:00)
[2017-07-21] MEDS ORDERED: CLOPIDOGREL 75 MG TAB PO SCH ×2 (09:00)
--- NOTE | 2017-07-21 09:14 | PN ---
DATE: 07/21/2017 SUBJECTIVE: The patient yesterday had a cardiac catheterization with PCI of the saphenous graft. T he patient had minimal contrast exposure of only 50 mL. Overnight, the patient was stable, no hemop tysis, hematemesis or hematochezia. OBJECTIVE: VITAL SIGNS: Blood pressure 144/64, respirations 13, pulse 63, temperature 98.1. HEENT: Head is normocephalic. NECK: Supple. HEART: Regular rate. LUNGS: Show diminished breath sounds at base. ABDOMEN: Soft, nontender to palpation. No rebound or guarding. EXTREMITIES: Negative for clubbing, cyanosis. No edema. DERMATOLOGIC: No rashes. MUSCULOSKELETAL: No joint effusions. NEUROLOGIC: No change in exam. MEDICATIONS: The patient's medications have been reviewed. LABORATORY DATA: Showed sodium 141, potassium 6.1, BUN 46, creatinine 3.32. ASSESSMENT AND PLAN: 1. Coronary artery disease. The patient is status post cardiac cath with PCI of the saphenous sherrie t. The patient is currently stable. Continue current antiplatelet therapy. 2. Hyperkalemia. Etiology is likely multifactorial secondary to chronic kidney disease, possible s purious. Will repeat a potassium level. Will give the patient 1 course of Kayexalate and monitor c losely. 3. Chronic kidney disease, stage IV, with a baseline creatinine of 3.5 mg/dL. Renal function appea rs to be below previous baseline. Would continue current treatment plan, supportive care, renally d ose all medications. The patient is status post IV fluids. No evidence of contrast-associated neph ropathy at this time. 4. Anemia. Monitor hemoglobin and hematocrit levels. 5. Mineral bone disorder. We will monitor calcium and phosphorus levels. 6. Diabetes. Continue Accu-Cheks, insulin sliding scale. 7. Hypertension. Continue current blood pressure regimen. Defer any RENETTA inhibitor or ARB at this time. 8. Arrhythmia, status post pacemaker. Continue medical management. 9. History of coronary artery disease, status post CABG. 10. Gastrointestinal and deep venous thrombosis prophylaxis. Dictated By: SANDY MCLAIN DO NR/NTS Conf#: [id number] DID#: [id number] CC: LITTLE CORRAL MD;*EndCC*
--- NOTE | 2017-07-23 13:22 | RADRPT ---
Vent Rate: 62 bpm RR Interval: 0 msec NC Interval: 186 msec QRS Duration: 140 msec QT Interval: 466 msec QTC Interval: 472 msec P-R-T [place]: 66 - 47 - 79 degrees Normal sinus rhythm Nonspecific intraventricular block Cannot rule out Anteroseptal infarct , age undetermined Abnormal ECG Electronically Signed By: Luis Arnett [id number]
== END 2017-07-21 11:52 | disposition home or self-care (01) ==
LOC: SDS 08:30 → REC 18:45 → UNDOADMOB 19:42 → ICU 20:54 → REC 20:54
PROVIDERS: ADMIT Internal Medicine Interventional Cardiology; ATTEND Internal Medicine Interventional Cardiology
DX: I25.710 Atherosclerosis of autologous vein coronary artery bypass graft(s) with unstable angina pectoris (principal); Z95.1 Presence of aortocoronary bypass graft; I12.9 Hypertensive chronic kidney disease with stage 1 through stage 4 chronic kidney disease, or unspecified chronic kidney disease; E11.22 Type 2 diabetes mellitus with diabetic chronic kidney disease; N18.4 Chronic kidney disease, stage 4 (severe); Z95.0 Presence of cardiac pacemaker; D64.9 Anemia, unspecified; M89.8X9 Other specified disorders of bone, unspecified site; E87.5 Hyperkalemia
CPT/HCPCS: 71010; 80053; 82550; 82553; 82962; 83735; 83880; 84100; 84132; 84484; 85025; 85610; 85730; 92937; 93005; C1760; C1874; C1887; C1894; G0378; J0132; J0583; J1815; J2250; J3010; Q9967